=== PATIENT | male | born 1955 | race Caucasian/White ===

== ENCOUNTER 2016-06-17 15:49 | Emergency (ER) | payer OTHER ==
[~2016-06-17] VITALS: Ht 167.6 cm; Wt 72.6 kg
[2016-06-17 15:50] VITALS: BP 204/100
[2016-06-17] MEDS ORDERED: SERT25TA PO (15:58)
[2016-06-17] MEDS ORDERED: JANU25TA PO ×2 (15:58→16:00)
[2016-06-17] MEDS ORDERED: METF500T PO (15:58)
== END 2016-06-17 18:44 | disposition left against medical advice (07) ==
LOC: M ED 17:05
DX: Z04.1 Encounter for examination and observation following transport accident (principal); V69.40XA Driver of heavy transport vehicle injured in collision with unspecified motor vehicles in traffic accident, initial encounter; Y92.410 Unspecified street and highway as the place of occurrence of the external cause; Y93.89 Activity, other specified; Y99.8 Other external cause status; M54.2 Cervicalgia; M25.532 Pain in left wrist; M54.5 Low back pain; E11.9 Type 2 diabetes mellitus without complications